=== PATIENT | male | born 1950 | race Caucasian/White ===

== ENCOUNTER 2016-08-20 05:48 | Inpatient (IN) | payer OTHER ==
[2016-08-20] MEDS ORDERED: LR 1,000 ML IV ONE (06:14)
[2016-08-20] MEDS ORDERED: LIDOCAINE 1% 5 ML SDV ID PRN (06:14)
[2016-08-20] MEDS ORDERED: LIDOCAINE 1% 5 ML SDV ONE (06:18)
[2016-08-20] MEDS ORDERED: CEFAZOLIN 2 GM/DEXTROSE/100 ML BAG IV ONE (06:18)
[2016-08-20] MEDS ORDERED: BUPIVACAINE/EPI 0.25% 30 ML SDV ONE (07:03)
[2016-08-20] MEDS ORDERED: SKIN ADHESIVE (DERMABOND) 1 EACH TP ONE ×2 (07:03→10:01)
[2016-08-20] MEDS ORDERED: BACITRACIN 50,000 UNITS/10 ML SYR IRR ONE (07:03)
[2016-08-20] MEDS ORDERED: THROMBIN (RECOMBINANT) 20,000 UNIT VIAL TP ONE (07:03)
[2016-08-20] MEDS ORDERED: REMIFENTANIL HCL 1 MG VIAL ONE ×2 (07:04→09:10)
[2016-08-20] MEDS ORDERED: PROPOFOL/EMULSION 500 MG/50 ML BOTTLE IV ONE ×2 (07:05→09:10)
[2016-08-20] MEDS ORDERED: LIDOCAINE 2% 5 ML SDV ONE (07:10)
[2016-08-20] MEDS ORDERED: MIDAZOLAM 2 MG/2 ML VIAL ONE (07:17)
[2016-08-20] MEDS ORDERED: PHENYLEPHRINE HCL 100 MCG/ML SYR ONE ×2 (07:51→09:11)
[2016-08-20] MEDS ORDERED: SUCCINYLCHOLINE CHLORIDE*ANESTHESIA ONLY*200 MG/10 ML SYR IVP ONE (07:51)
[2016-08-20] MEDS ORDERED: epHEDrine SULFATE 10 MG/ML SYR ONE (07:51)
[2016-08-20] MEDS ORDERED: DEXAMETHASONE 4 MG/ML VIAL ONE (08:03)
[2016-08-20] MEDS ORDERED: ONDANSETRON 4 MG/2 ML VIAL ONE (08:05)
[2016-08-20] MEDS ORDERED: morphINE PF 1 MG/2 ML AMP IT ONE (08:30)
[2016-08-20] MEDS ORDERED: morphINE PF 5 MG/10 ML INJ IT ONE (09:00)
[2016-08-20] MEDS ORDERED: morphINE PF 5 MG/10 ML INJ ONE ×2 (09:08→09:40)
[2016-08-20] MEDS ORDERED: HYDROmorphONE/DILAUDID 2 MG/ML SYR ONE (09:56)
[2016-08-20] MEDS ORDERED: ceFAZolin 2 GM/DEXTROSE 100 ML IV ONE (10:00)
[2016-08-20] MEDS ORDERED: CHLORHEXIDINE GLUC HIBICLENS 118 ML BTL TP ONE (10:00)
[2016-08-20] MEDS ORDERED: ONDANSETRON 4 MG/2 ML VIAL IVP PRN (10:18)
[2016-08-20] MEDS ORDERED: ONDANSETRON DISINTEGRATING 4 MG TAB PO PRN (10:18)
[2016-08-20] MEDS ORDERED: MAGNESIUM HYDROXIDE 30 ML UDCUP PO PRN (10:18)
[2016-08-20] MEDS ORDERED: DIAZEPAM 10 MG/2 ML SYR IVP PRN (10:18)
[2016-08-20] MEDS ORDERED: PROMETHAZINE HCL 25 MG/ML VIAL IVP PRN (10:18)
[2016-08-20] MEDS ORDERED: HYDROmorphONE/DILAUDID 1 MG/ML SYR IVP PRN (10:18)
[2016-08-20] MEDS ORDERED: ACETAMINOPHEN 325 MG TAB PO PRN (10:18)
[2016-08-20] MEDS ORDERED: POLYETHYLENE GLYCOL 3350 17 GM PKT PO PRN (10:18)
[2016-08-20] MEDS ORDERED: OXYCODONE/APAP 5/325 TAB PO PRN (10:18)
[2016-08-20] MEDS ORDERED: BISACODYL 10 MG SUPP PR PRN (10:18)
[2016-08-20] MEDS ORDERED: diphenhydrAMINE 25 MG CAP PO PRN (10:18)
[2016-08-20] MEDS ORDERED: LACTULOSE 20 GM/30 ML UDCUP PO PRN (10:18)
--- NOTE | 2016-08-20 10:27 | POSTOPPROG ---
Post Op Note Date of Operation: 08/20/16 Surgeon: Rhonda Chowdary Pick Pulling Machine Tender: Yao Chowdary PAJazzmineC Anesthesia: GET(General Endotracheal) Pre-op Diagnosis: lumbar degenerative joint disease Post-op Diagnosis: same Indication: pain, degeneration Procedure: L45 TLIF and posterior fusion Findings: Please see Dr Aguayo's operative report Inf/Abcess present in the surg proc area at time of surgery?: No Depth: Organ Space EBL: 50-100 Complications: none Drains: Ganesh Calderon Specimen(s): none PA Addendum - Addendum .: S: Pt awake in bed, c/o back pain O: AAOx3 NAD VSS MAEx4 Motor 5/5 BUE/BLE +LT Incision dressed JPx1 Joy A: 66 yo M s/p L45 TLIF and posterior fusion P: PT/OT Pain management Brace when OOB TEDs, SCDs, lovenox POD#1 Post op xrays pending Call NS with any issues
[2016-08-20] MEDS ORDERED: fentaNYL 100 MCG/2 ML INJ ONE ×2 (10:29→11:14)
[2016-08-20] MEDS ORDERED: HYDROmorphONE/DILAUDID 1 MG/ML SYR ONE ×2 (10:39→11:52)
[2016-08-20] MEDS ORDERED: DIAZEPAM 10 MG/2 ML SYR ONE (10:50)
--- NOTE | 2016-08-20 12:08 | GOP ---
[f rep st] OPERATIVE REPORT DATE OF OPERATION: 08/20/2016 SURGEON: Chris Aguayo MD ANESTHESIA: General. PREOPERATIVE DIAGNOSIS: 1. 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 2. Low back pain with left lower extremity radiculopathy. 3. Treatment refractory to nonoperative intervention. POSTOPERATIVE DIAGNOSIS: 1. 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 2. Low back pain with left lower extremity radiculopathy. 3. Treatment refractory to nonoperative intervention. PROCEDURE PERFORMED: 1. Posterior arthrodesis with approach to L4-L5. 2. Posterolateral fusion with bilateral pedicle screw placement into L4 and L5 from the [employer] system. 3. Left-sided L4-L5 hemilaminotomy with facetectomy, foraminotomy, and nerve root decompression. 4. Left-sided L4-L5 transforaminal lumbar interbody fusion with a 9 x 28 mm titanium Peek Elevate cage filled with morselized autograft and allograft. 5. Right-sided L4-L5 posterolateral fusion with morselized autograft and allograft. 6. Use of intraoperative 3D Stealth navigation. 7. Use of intraoperative fluoroscopy, less than1 hour physician time. 8. Use of neuromonitoring. 9. Use of the operating microscope. 10. Injection of preservative-free intrathecal narcotics. FINDINGS: per imaging SPECIMENS: None. ESTIMATED BLOOD LOSS: 100 mL. INDICATIONS: The patient is a 66-year-old gentleman who, unfortunately, suffered from a long-standing history of left lower extremity radiculopathy with low back pain. He had evidence of a mobile spondylolisthesis at L4-5 which was unstable, based on 7 mm of abnormal motion. After discussion of the risks, benefits, and treatment alternatives and after failing nonoperative intervention, we decided to proceed forth with surgery as described above. DESCRIPTION OF PROCEDURE: The patient was brought to the operating theater and underwent general endotracheal anesthesia without complications. He had Venodynes and CELSA hose and a Joy catheter placed. He was flipped prone onto the Ganesh table, and all bony prominences inspected and padded. The lower lumbar region was prepped and draped in the usual sterile surgical fashion. A time-out was completed per protocol, and the patient received antibiotics within 1 hour of incision. Using the lateral fluoroscopy and spinal needle, we picked our entry point at the L4-L5 level. This was marked in the midline, and the incision infiltrated with Marcaine with epinephrine. The incision was taken down with the scalpel blade, and using the monopolar taken down to the midline through the lumbodorsal fascia, and a subperiosteal dissection carried out to the transverse process of L4 and L5. Care was taken to preserve the L3-4 facet joint. Deep retractors were placed to maintain our exposure. We attached the 3D Stealth navigation clamp to the spinous process of L5 and completed a 3D Stealth navigation spin. Using 3D Stealth navigation, we placed the pilot plant technician holes for the bilateral pedicle screws into L4 and L5. All holes were manually palpated with no evidence of any cortical breaches. We placed bilateral 6.5 x 50 mm screws into L4 and 6.5 x 45 mm screws into L5 from the [employer] system. Another 3D Stealth navigation spin demonstrated good placement of the hardware. At this point, the microscope was brought into the field to assist with microscopic dissection and to maintain illumination and magnification. Using a combination of the bur tip on the drill bit and the Kerrison punches, we completed a left-sided L4-L5 hemilaminotomy with facetectomy and resected the pars to open the foramen. We identified the nerve root. We then completed a left-sided L4-5 diskectomy. We prepared the cartilaginous endplates and measured the interbody space. We placed a 9 x 28 mm titanium Peek Elevate cage filled with morselized autograft and allograft anteriorly and toward the midline. We packed additional morselized autograft into the disk space for the interbody fusion. AP and lateral x-rays demonstrated good placement of the hardware. We let down the distraction and decorticated the bone on the right side between L4-5. We placed 2 lordotic rods into the heads of the screws between L4-5 and secured them down with cap screws which were tightened per the landscape foreman's setting. We placed morselized autograft and allograft on the right side for the posterolateral fusion between L4-5. We injected preservative -free intrathecal narcotics and left to drain in the subfascial space. The wound was then closed in multiple layers using Vicryl sutures to the deep layers and Dermabond for the skin. The patient's wounds were dressed sterilely. He was awakened, extubated, and taken to the recovery room in stable condition. There were no complications, and no noted changes on neuromonitoring throughout the procedure. COMPLICATIONS: None. GAS SUBSTATION OPERATOR: JESSICA Carmona. /[id number]/MODL [email or web address]
[2016-08-20] MEDS: NS W/ 20 KCl/L 1,000 ML IV SCH (13:17)
[2016-08-20] MEDS: METHOCARBAMOL 750 MG TAB PO PRN ×2 (13:22→19:49)
[2016-08-20] MEDS: HYDROCODONE/APAP 5/325 TAB PO PRN ×4 (13:25→22:02)
--- NOTE | 2016-08-20 15:54 | DX ---
Intraoperative fluoroscopy History: Lumbar fusion. Comparison: MR lumbar spine July 12, 2016. Findings: Two spot films are provided, showing bilateral transpedicular L4 and L5 fusion hardware in expected position with intervertebral hardware at L4-L5 in expected position. Fluoro time: 7.2 seconds. Dose: 8.5 mGy. Impression: Intraoperative fluoroscopy as above.
[2016-08-20] MEDS ORDERED: FAMOTIDINE 20 MG/NACL 50 ML IV SCH (21:00)
[2016-08-20] MEDS: SENNOSIDES/DOCUSATE SODIUM TAB PO SCH (21:14)
[2016-08-20] MEDS: DIAZEPAM 5 MG TAB PO PRN (22:02)
[2016-08-21] MEDS: HYDROCODONE/APAP 5/325 TAB PO PRN ×6 (01:19→23:41)
[2016-08-21] MEDS: NS W/ 20 KCl/L 1,000 ML IV SCH (01:19)
[2016-08-21] MEDS: DIAZEPAM 5 MG TAB PO PRN ×3 (05:57→20:15)
--- NOTE | 2016-08-21 07:01 | NEUSURGPN ---
Date of Surgery: 08/20/16 Post Op Day: 1 Assessment/Plan: Assessment: 66 yo M s/p L4/5 TLIF and posterior fusion POD #1 Plan: -s/p L spine fusion: pt with expected lower back pain -GENESIS still productive -PT/OT-CPM -Pain management-continue present meds -Brace when OOB -TEDs, SCDs, lovenox POD#1 -Post op xrays pending -reviewed plan with pt and understands and agrees -call NS with any issues Subjective: Awake and alert. NAD. Eating/drinking and voiding. No f/c/n/v/d. No other complaints or concerns. Objective: AAOx3, NAD MAEx4 Motor 5/5 BUE/BLE +LT Incision dressed JPx1-still productive Neuro Check Frequency: per routine Urinary Catheter in Place: No Catheter Insertion Date: 08/20/16 - Physician Discussed Patient with : [facility] Physical Exam - Vitals, I&O, Labs I and O 08/20/16 08/21/16 08/22/16 05:59 05:59 05:59 Intake Total 2930 Output Total 1435 Balance 1495 Weight 65.771 kg Intake: Oral (ml) 280 IV Intake (ml) 1600 IV Infused (ml) 1050 ceFAZolin 1 GM/DEXTROSE 100 50 ml @ 200 mls/hr IV Q8HRS MARCELLA Rx#:[id number] Famotidine 20 mg/NaCl 50 50 ml @ 200 mls/hr IV Q12HRS MARCELLA Rx#:[id number] NS W/ 20 KCl/L 1,000 ml @ 900 75 mls/hr IV CONT MARCELLA Rx #:[id number] Output: Urine (ml) 1190 Catheter 1190 Estimated Blood Loss (ml) 100 Wound Drainage (ml) 145 Posterior Back Ganesh 145 Calderon Other: Number of Voids Catheter 1 Vital Signs Temp Pulse Resp BP Pulse Ox 36.7 C 50 L 14 96/59 L 95 08/21/16 04:00 08/21/16 04:00 08/21/16 04:00 08/21/16 04:00 08/21/16 04:00 Laboratory Results 08/01/16 16:03 08/01/16 16:03 ICD10 Worksheet Patient Problems: Problems Problem Status Diagnosed Arthrodesis status Acute Lumbar radicular pain Acute Lumbar stenosis Acute - ICD10 Problem Qualifiers (1) Lumbar stenosis (2) Lumbar radicular pain (3) Arthrodesis status
[2016-08-21] MEDS ORDERED: NON-FORMULARY NEW DRUG (Escitalopram Oxalate [Lexapro] 5 MG) PO SCH (09:00)
[2016-08-21] MEDS: ENOXAPARIN 40 MG/0.4 ML SYR SC SCH (09:23)
[2016-08-21] MEDS: SENNOSIDES/DOCUSATE SODIUM TAB PO SCH ×2 (09:24→20:14)
[2016-08-21] MEDS: CHOLECALCIFEROL VIT D3 1,000 UNITS TAB PO SCH (09:25)
[2016-08-21] MEDS: FAMOTIDINE 20 MG TAB PO SCH ×2 (09:27→20:14)
[2016-08-21] MEDS: TESTOSTERONE SL SCH (09:29)
[2016-08-21] MEDS: NATURE THYROID PO SCH (09:29)
[2016-08-21] MEDS: ESCITALOPRAM OXALATE 10 MG TAB PO SCH (13:01)
--- NOTE | 2016-08-21 13:35 | DX ---
Lumbar spine upright AP and lateral 1128 hours History: Postop fusion. Findings: Comparison to prior MRI lumbar spine study from July 12, 2016. Pedicle screws and paraspinal rods are seen between L4 and L5 segments along with disk replacement ma terial in good position and alignment. Vertebral body heights are well-maintained. There are no sublu xations. There is mild intervertebral disk space narrowing with small anterior marginal osteophytes a t L3-L4. The remainder the disk spaces are normal. Drainage catheter is seen left posterior paraspina l soft tissues. There is moderate to marked intervertebral disk space narrowing with marginal osteoph ytes and endplate sclerosis at T10-T11 and at T11-T12. Impression: 1. Good alignment of fusion between L4 and L5 segments. 2. Moderate to marked degenerative disk disease lower thoracic spine.
[2016-08-22] MEDS: HYDROCODONE/APAP 5/325 TAB PO PRN ×2 (05:30→12:38)
--- NOTE | 2016-08-22 08:12 | NEUSURGPN ---
Assessment/Plan: Assessment: 66 yo M s/p L4/5 TLIF and posterior fusion POD #2 Plan: -s/p L spine fusion: pt with expected lower back pain -GENESIS drain: remove -PT/OT-CPM -Pain management-continue present meds -Brace when OOB -TEDs, SCDs, lovenox POD#1 -Post op xrays show stable hardware -DC to home today -call NS with any issues -D/w Dr Aguayo Subjective: Pt resting in bed, expected post op pain. Ready to go home today he says. Objective: AAOx3 NAD VSS MAEx4 Motor 5/5 BLE Incision cdi JPx1 in place scant bloody dc in bulb Urinary Catheter in Place: No Catheter Insertion Date: 08/20/16 - Physician Discussed Patient with : [facility] Physical Exam - Vitals, I&O, Labs I and O 08/21/16 08/22/16 08/23/16 05:59 05:59 05:59 Intake Total 2930 1100 Output Total 1435 55 Balance 1495 1045 Weight 65.771 kg Intake: Oral (ml) 280 1100 IV Intake (ml) 1600 IV Infused (ml) 1050 ceFAZolin 1 GM/DEXTROSE 100 50 ml @ 200 mls/hr IV Q8HRS MARCELLA Rx#:[id number] Famotidine 20 mg/NaCl 50 50 ml @ 200 mls/hr IV Q12HRS MARCELLA Rx#:[id number] NS W/ 20 KCl/L 1,000 ml @ 900 75 mls/hr IV CONT MARCELLA Rx #:[id number] Output: Urine (ml) 1190 Catheter 1190 Estimated Blood Loss (ml) 100 Wound Drainage (ml) 145 55 Posterior Back Ganesh 145 55 Calderon Other: Number of Voids Catheter 1 Vital Signs Temp Pulse Resp BP Pulse Ox 36.8 C 56 L 16 118/69 95 08/22/16 07:30 08/22/16 07:30 08/22/16 07:30 08/22/16 07:30 08/22/16 07:30 Laboratory Results 08/01/16 16:03 08/01/16 16:03 ICD10 Worksheet Patient Problems: Problems Problem Status Diagnosed Arthrodesis status Acute Lumbar radicular pain Acute Lumbar stenosis Acute
[2016-08-22] MEDS: FAMOTIDINE 20 MG TAB PO SCH (09:13)
[2016-08-22] MEDS: ENOXAPARIN 40 MG/0.4 ML SYR SC SCH (09:14)
[2016-08-22] MEDS: SENNOSIDES/DOCUSATE SODIUM TAB PO SCH (09:14)
[2016-08-22] MEDS: NATURE THYROID PO SCH (09:54)
[2016-08-22] MEDS: CHOLECALCIFEROL VIT D3 1,000 UNITS TAB PO SCH (09:54)
[2016-08-22] MEDS: ESCITALOPRAM OXALATE 10 MG TAB PO SCH (09:54)
[2016-08-22] MEDS: TESTOSTERONE SL SCH (09:55)
[2016-08-22 11:47] VITALS: BP 128/74; PULSE 62; RESP 18; TEMP 98.6; O2SAT 97
== END 2016-08-22 13:40 | disposition home or self-care (01) | DRG 460 ==
LOC: F3N 05:48
PROVIDERS: ADMIT Neurological Surgery; ATTEND Neurological Surgery
PROC: 0SG00AJ Fusion of Lumbar Vertebral Joint with Interbody Fusion Device, Posterior Approach, Anterior Column, Open Approach (ICD-10-PCS; principal; 2016-08-20 07:15)
PROC: 4A1004G Monitoring of Central Nervous Electrical Activity, Intraoperative, Open Approach (ICD-10-PCS; principal; 2016-08-20 07:15)
PROC: 01NB0ZZ Release Lumbar Nerve, Open Approach (ICD-10-PCS; principal; 2016-08-20 07:15)
PROC: 8E0WXBZ Computer Assisted Procedure of Trunk Region (ICD-10-PCS; principal; 2016-08-20 07:15)
DX: M47.26 Other spondylosis with radiculopathy, lumbar region (principal); E03.9 Hypothyroidism, unspecified; F32.9 Major depressive disorder, single episode, unspecified
CPT/HCPCS: 97161-GP; 97165-GO; C1713; C1762; J0330; J0690; J1100; J1170; J1650; J2250; J2274; J2370; J2405; J2704; J3010

== ENCOUNTER → 2016-09-27 | Outpatient (CLI) | payer OTHER | LOC: FIMAGING 11:44 | PROVIDERS: ATTEND Physician Assistant | DX: Z09 Encounter for follow-up examination after completed treatment for conditions other than malignant neoplasm (principal); Z98.1 Arthrodesis status; M99.72 Connective tissue and disc stenosis of intervertebral foramina of thoracic region ==

== ENCOUNTER → 2016-11-05 | Outpatient (CLI) | payer OTHER | LOC: FIMAGING 10:50 | PROVIDERS: ATTEND Physician Assistant | DX: Z09 Encounter for follow-up examination after completed treatment for conditions other than malignant neoplasm (principal); Z98.1 Arthrodesis status ==

== ENCOUNTER → 2017-02-18 | Outpatient (CLI) | payer OTHER | LOC: FIMAGING 07:52 | PROVIDERS: ATTEND Physician Assistant | DX: Z09 Encounter for follow-up examination after completed treatment for conditions other than malignant neoplasm (principal); M51.34 Other intervertebral disc degeneration, thoracic region; Z98.1 Arthrodesis status ==

== ENCOUNTER → 2017-08-10 | Outpatient (CLI) | payer OTHER | LOC: FIMAGING 11:03 | PROVIDERS: ATTEND Physician Assistant | DX: Z98.1 Arthrodesis status (principal) ==